=== PATIENT | male | born 1950 ===

== ENCOUNTER 2017-12-25 12:18 | Inpatient (IN) | payer BC, MEDICARE ==
[2018-01-06] MEDS ORDERED: MECLIZINE 25 MG TABLET PO ONE (06:00)
[2018-01-06] MEDS ORDERED: VANCOMYCIN HCL 1,000 MG in DEXTROSE 5 % IN WATER 250 ML IVPB ONE ×2 (06:00)
[2018-01-06] MEDS ORDERED: CEFAZOLIN 2 Gram 2 GM/50 ML BAG IVPB ONE (06:00)
[2018-01-06] MEDS ORDERED: FAMOTIDINE 20MG TABLET PO ONE (06:00)
[2018-01-06] MEDS ORDERED: CELECOXIB 100 MG CAPSULE PO ONE (06:00)
[2018-01-06] MEDS ORDERED: METOCLOPRAMIDE 10 MG TABLET PO ONE (06:00)
[2018-01-06 09:01] LABS: ABO GROUP O; ANTIBODY SCREEN NEGATIVE (NEGATIVE); RH TYPE POSITIVE
[2018-01-06] MEDS ORDERED: HYDROMORPHONE HCL 2 MG/ML VIAL IM PRN (11:05)
[2018-01-06] MEDS ORDERED: NALOXONE 0.4 MG/1 ML VIAL IVP PRN (11:05)
[2018-01-06] MEDS ORDERED: ACETAMINOPHEN 325 MG TAB PO PRN (11:05)
[2018-01-06] MEDS ORDERED: ACETAMINOPHEN W/ CODEINE 300MG/60MG TABLET PO PRN ×2 (11:05)
[2018-01-06] MEDS ORDERED: MAGNESIUM HYDROXIDE 30 ML UDC PO PRN (11:05)
[2018-01-06] MEDS ORDERED: AL HYDROX/MAG HYDROX 30ML UD PO PRN (11:05)
[2018-01-06] MEDS ORDERED: ZOLPIDEM TARTRATE 5 MG TABLET PO PRN (11:05)
[2018-01-06] MEDS ORDERED: KETOROLAC 30 MG/ML VIAL IVP PRN ×2 (11:05)
[2018-01-06] MEDS ORDERED: DIPHENHYDRAMINE HCL 25 MG CAPSULE PO PRN (11:05)
[2018-01-06] MEDS ORDERED: BISACODYL 10 MG SUPP RC PRN (11:05)
[2018-01-06] MEDS ORDERED: HYDROCODONE/APAP 10/325 TABLET PO PRN (11:05)
[2018-01-06] MEDS ORDERED: ONDANSETRON HCL IV 4 MG/2 ML VIAL IVP PRN (11:05)
[2018-01-06] MEDS ORDERED: TRAMADOL HCL 50 MG TABLET PO PRN (11:05)
--- NOTE | 2018-01-06 12:36 | Operative Note ---
DATE: 01/06/2018 PREOPERATIVE DIAGNOSIS: END-STAGE ARTHROSIS OF THE LEFT KNEE. POSTOPERATIVE DIAGNOSIS: END-STAGE ARTHROSIS OF THE LEFT KNEE. PROCEDURE: Cemented left total knee arthroplasty using [employer] II components with a size 6 Oxinium femur, a size 6 stemmed tibial base plate, a 9 mm lipped Highly Crosslinked tibial insert and a 35 mm all-plastic patella. STAFF SURGEON: LISSET DE LA VEGA M.D. ANESTHESIA: GENERAL. PREPARATION: CHLORAPREP. INDIVIDUAL CONSIDERATIONS: NONE. PROCEDURE: The patient was taken to the Operating Room and placed supine on the operating table. He had a successful induction of a general anesthetic. His left lower extremity was prepped and draped in the usual fashion. The patient had a midline approach to the knee. Limb was elevated. The tourniquet was inflated to 250 mmHg. Sharp dissection was carried down through the skin and subcutaneous tissues. Small veins were coagulated with a Bovie. A medial arthrotomy was performed. The patella was everted and the knee was flexed. He had exposed bone primarily in the medial compartment and some change in the patellofemoral compartment. Fat pad was resected, ACL was sacrificed, provisional anterior meniscectomies were performed, and the capsule was released from the medial proximal tibia. The initial femoral ship pilot dispatcher hole was then made freehand. The intramedullary femoral cutting jig was placed. It was cut in 7 degrees of valgus and set for a 10 mm resection and secured with pins. After making the cut, the skin guide was placed in the anterior and posterior ship pilot dispatcher holes. It was found that a size 6 would be appropriate. The anterior and posterior cuts followed by chamfer cuts were made, osteophytes removed, and a size 6 trial was placed and found to fit well. The tibia was brought forward and the remainder of the meniscal remnants were removed with a Bovie. The extra-articular tibial cutting jig was placed and it was cut in neutral with a 3 degree AP slope. Care was taken to adjust for rotation and flexion using the extra-articular alignment guide and bony landmarks. It was set for a 9 mm resection, keyed off the high lateral side, and secured with pins. When cutting the tibia, care was taken to preserve the PCL insertion on the tibia. Large medial osteophytes were removed and I was still able to fit a size 6 baseplate. It was adjusted for rotation and secured with pins. With a 9 mm trial and femoral trial, there was excellent motion and stability. Ligamentous balance, rotation, and alignment were thought to be normal. The femoral ship pilot dispatcher holes were impacted and a triflange tibial stamp was impacted and these trial components were removed. The patient had a thick patella, roughly 9 mm of bone was removed freehand with an oscillating saw. I could easily fit a 35 and the three ship pilot dispatcher holes were drilled. The tourniquet was let down briefly to get bleeders posteriorly then placed back up again. The knee was then thoroughly irrigated out with pulsatile Betadine and saline to remove any visual or palpable debris. Bony surfaces were then dried. A size 6 stem tibial baseplate was cemented into place, followed by impaction of the 9 mm lipped Highly Crosslinked tibial insert, followed by cementing in the size 6 Oxinium femur, followed by cementing in a 35 mm patella. Implant surfaces were compressed, excess cement was removed, and after the cement had set, there was excellent motion and stability. Ligamentous balance, rotation alignment, and patellofemoral tracking were normal. No lateral release was required. Again, thorough irrigation. The tourniquet was then let down and hemostasis was obtained with a Bovie. The subcut and periosteum were infiltrated with 30 mL of 0.50% Marcaine with Epinephrine. The capsule was then closed with a running #2 quill, subcut was closed in layers with running 0 quill in layers, and the skin was closed with amparo. 20 mL of saline was mixed with a gram of Tranexamic Acid and this was injected into the knee. The patient did receive a gram of Tranexamic Acid prior. A sterile Bulkee compressive SARINA-type dressing was applied and he was taken back to Recovery in good condition. There were no complications. JOB NUMBER: [id number] MTDD
--- NOTE | 2018-01-06 14:24 | Rehab Evaluation ---
Patient Information - Patient Information Diagnosis: L knee DJD Ordered Treatment: PT Evaluate and Treat Status: Initial Evaluation Surgery: Yes (TKA) Date of Surgery: 01/06/18 Past Medical/Surgical Hx: PAST MEDICAL/SURGICAL HISTORY Past Surgical History quad bypass 1998 RTCR left bilat CTR right hand sx cervical sx plate cardiac stents 4 stents 2015 cardiac stent 1 stent 2014 bunionectomy right knee scope PMH - Respiratory Hx Respiratory Disorders Yes Hx Pneumonia Yes Hx Sleep Apnea Yes Hx of CPAP Yes PMH - Cardiovascular Hx Cardiovascular Disorders Yes Hx Abnormal EKG Yes Hx Edema Yes Hx Heart Attack Yes: 1998 before quad bypass Hx Hypertension Yes: on meds good control Hx Coronary Artery Disease Yes Hx Coronary Artery Bypass Yes: quad 1998 Graft Hx Coronary Stent Yes: 2014 and 2015 Exercise Tolerance Fair PMH - Neuro Hx Neurological Disorders Yes Hx Dizziness Yes: after sitting when he gets up PMH - GI Hx Gastrointestinal Disorders No PMH - Hx Genitourinary Disorders No PMH - Endocrine Hx Endocrine Disorders No PMH - Musculoskeletal Hx Musculoskeletal Disorders Yes Hx Arthritis Yes: RA Hx Gout Yes: on meds PMH - Psych Hx Psychiatric Problems No PMH - Hematology/Oncology Hx Hematology/Oncology Yes Disorders Hx Bruising Yes: on Plavix Premorbid Status: Detail (Prior to surgery, the patient was independent with all mobility.) Social History: Detail (The patient lives with spouse in a 2 story house with 5 steps at the enterance with one railing. The patient reports he will initially be staying on the first floor. The bathroom is equipped with a walk in shower with a hand held shower and an elevated toilet seat. The patient has a walker with wheels and a stand cane.) Precautions: [place], Fall, Other (WBAT on the L LE.) - Time With Patient Total Time Spent With Patient (Min): 30 Treatment Procedures: Detail (Initial Evaluation.) Subjective Information - Subjective Information Per Patient (The patient had minimal complaints of L knee pain that he did not rate using the 0 to 10 pain scale.) Objective Data - Mental Status Patient Orientation: Oriented x3 - Visual Perception Appears within normal limits for therapeutic activities - ROM Not within normal limits (The patient's AROM of L knee was not tested secondary to s/p surgery. All other LE AROM is WNL.) - Strength/Tone Not within normal limits (The patient's L LE strength was not tested secondary to s/p surgery, however strength is functional, the patient is able to complete a SLR. The patient's R LE strength is generally 4+ to 5/5.) - Bed Mobility Independent (The patient was independent with supine to sit and scooting up in bed.) - Transfers Independent (The patient was independent with sit to and from stand transfer and toilet transfer.) - Balance Balance Sitting: Good Balance Standing: Good - Sensation Intact - Gait Detail (The patient ambulated with wheeled walker a distance of 70 feet x 1 WBAT on the L LE with supervision for safety only and assist to handle IV.) Therapy Assessment - Therapy Assessment Detail (The patient was independent with bed mobility and transfers, with supervision for safety only for ambulation. Anticipate the patient will progress well with mobility.) Problem List - Problem List Physical Therapy Problem List: Detail (1) Decreased L knee AROM and strength as to be expected following surgery. 2) Non ambulatory on stairs.) Goals - Goals Physical Therapy Goals: 1) The patient will be independent with TKA HEP. 2) The patient will ambulate on stairs using correct technique with supervision for safety only. Prognosis - Prognosis Good Plan - Plan Physical Therapy Plan: PT 1-2 times for gait training and instruction in HEP.
[2018-01-06] MEDS ORDERED: ROPIVACAINE HCL (NAROPIN) /PF 5MG/ML 20ML VIAL IV ONE (14:27)
[2018-01-06] MEDS ORDERED: DEXAMETHASONE 4 MG/ML 1ML VIAL IVP ONE (14:27)
[2018-01-06] MEDS ORDERED: TRANEXAMIC ACID 1,000 MG/10 ML ML IV ONE ×2 (14:30→15:49)
[2018-01-06] MEDS ORDERED: 0.9 % SODIUM CHLORIDE 10 ML VIAL IVP ONE (14:30)
[2018-01-06] MEDS: PATIENT OWN MED: ASPIRIN 81 MG PO SCH (15:41)
[2018-01-06] MEDS: PATIENT OWN MED: GABAPENTIN 300 MG PO SCH ×2 (15:43→21:40)
[2018-01-06] MEDS: PATIENT OWN MED: ATENOLOL 100 MG PO SCH (15:44)
[2018-01-06] MEDS: PATIENT OWN MED: ALLOPURINOL 300 MG PO SCH (15:44)
[2018-01-06] MEDS: PATIENT OWN MED: ATORVASTATIN 80 MG PO SCH (15:45)
[2018-01-06] MEDS: PATIENT OWN MED: CLOPIDOGREL 75 MG PO SCH (15:46)
[2018-01-06] MEDS: ISOSORBIDE MONONITRATE 60 MG PO SCH (15:47)
[2018-01-06] MEDS: PATIENT OWN MED: FUROSEMIDE 40 MG PO SCH (15:47)
[2018-01-06] MEDS: PATIENT OWN MED: LISINOPRIL 20 MG PO SCH (15:48)
[2018-01-06] MEDS: PATIENT OWN MED: POTASSIUM 20 MEQ PO SCH (15:48)
[2018-01-06] MEDS ORDERED: BUPIVACAINE 0.5% W/EPI MPF 30 ML VIAL IVP ONE (15:49)
[2018-01-06] MEDS ORDERED: MIDAZOLAM HCL 2MG/2ML VIAL IV ONE (16:17)
[2018-01-06] MEDS ORDERED: KETOROLAC 30 MG/ML VIAL IVP ONE (16:17)
[2018-01-06] MEDS ORDERED: *PACU ONLY* KETAMINE HCL 10 MG/ML (20ML) VIAL IV ONE (16:17)
[2018-01-06] MEDS ORDERED: ONDANSETRON HCL IV 4 MG/2 ML VIAL IVP ONE (16:17)
[2018-01-06] MEDS ORDERED: LIDOCAINE 2% MDV (20MG/ML) 20ML VIAL IV ONE (16:17)
[2018-01-06] MEDS ORDERED: HYDROMORPHONE HCL 2 MG/ML VIAL IV ONE (16:17)
[2018-01-06] MEDS ORDERED: PROPOFOL 10 MG/ML VIAL IV ONE (16:17)
[2018-01-06] MEDS: HYDROCODONE/APAP 10/325 TABLET PO PRN ×2 (16:55→21:45)
[2018-01-06] MEDS: CEFAZOLIN 2 Gram 2 GM/50 ML BAG IVPB SCH (16:55)
[2018-01-06] MEDS: POTASSIUM CHLORIDE/D5-0.9%NACL 20 MEQ/1,000 ML BAG IV SCH ×2 (19:17→21:35)
[2018-01-06] MEDS: DOCUSATE SODIUM 100 MG CAPSULE PO SCH (21:40)
[2018-01-07] MEDS: CEFAZOLIN 2 Gram 2 GM/50 ML BAG IVPB SCH ×2 (01:24→08:19)
[2018-01-07] MEDS: HYDROCODONE/APAP 10/325 TABLET PO PRN ×4 (05:29→17:45)
[2018-01-07] MEDS: POTASSIUM CHLORIDE/D5-0.9%NACL 20 MEQ/1,000 ML BAG IV SCH ×2 (05:35→13:45)
[2018-01-07 06:34] LABS: HEMATOCRIT 39.6 % (42.0-52.0)
[2018-01-07] MEDS: PATIENT OWN MED: GABAPENTIN 300 MG PO SCH ×2 (06:41→13:45)
[2018-01-07 06:45] LABS: BLOOD UREA NITROGEN 14 mg/dL (8-23); CREATININE 0.9 mg/dL (0.7-1.2); EST GLOMERULAR FILTRATION RATE > 60 mL/min; GLUCOSE,RANDOM 129 mg/dL (74-109)
[2018-01-07] MEDS: DOCUSATE SODIUM 100 MG CAPSULE PO SCH (09:26)
--- NOTE | 2018-01-07 09:34 | Physical Therapy Tx Note ---
Physical Therapy Tx Note - Treatment Note Tolerated: Good Total Time Spent With Patient: 30 Physical Therapy Tx Note: Detail (The patient was in bed when PT arrived and stated his pain was minimal. The patient completed TKA HEP with minimal verbal cues to remember all the exercises including: heel slides, SLR, gluteal sets, quad sets, hamstring sets, and ankle pumps. The patient ambulated independently with wheeled walker WBAT on the LE a distance of 80 feet x 1. The patient ambulated on 3 steps using proper technique with use of one railing and folded walker with supervision for safety only. The patient has met all inpatient PT goals.) Physical Therapy Problem List: Detail (1) Decreased L knee AROM and strength as to be expected following surgery. 2) Non ambulatory on stairs.) Physical Therapy Goals: GOALS MET: 1) The patient will be independent with TKA HEP. 2) The patient will ambulate on stairs using correct technique with supervision for safety only. Physical Therapy Plan: The patient has met all inpatient PT goals and is discharged from inpt. PT. The patient is to receive home PT services.
[2018-01-07] MEDS ORDERED: RIVAROXABAN 10 MG TABLET PO SCH (10:00)
[2018-01-07] MEDS ORDERED: FERROUS SULFATE 325 MG TAB PO SCH (10:00)
--- NOTE | 2018-01-07 10:51 | Rehab Evaluation ---
Patient Information - Patient Information Diagnosis: L knee DJD Ordered Treatment: OT Evaluate and Treat Status: Initial Evaluation Surgery: Yes (left TKA) Date of Surgery: 01/06/18 Past Medical/Surgical Hx: PAST MEDICAL/SURGICAL HISTORY Past Surgical History quad bypass 1998 RTCR left bilat CTR right hand sx cervical sx plate cardiac stents 4 stents 2015 cardiac stent 1 stent 2014 bunionectomy right knee scope PMH - Respiratory Hx Respiratory Disorders Yes Hx Pneumonia Yes Hx Sleep Apnea Yes Hx of CPAP Yes PMH - Cardiovascular Hx Cardiovascular Disorders Yes Hx Abnormal EKG Yes Hx Edema Yes Hx Heart Attack Yes: 1998 before quad bypass Hx Hypertension Yes: on meds good control Hx Coronary Artery Disease Yes Hx Coronary Artery Bypass Yes: quad 1998 Graft Hx Coronary Stent Yes: 2014 and 2015 Exercise Tolerance Fair PMH - Neuro Hx Neurological Disorders Yes Hx Dizziness Yes: after sitting when he gets up PMH - GI Hx Gastrointestinal Disorders No PMH - Hx Genitourinary Disorders No PMH - Endocrine Hx Endocrine Disorders No PMH - Musculoskeletal Hx Musculoskeletal Disorders Yes Hx Arthritis Yes: RA Hx Gout Yes: on meds PMH - Psych Hx Psychiatric Problems No PMH - Hematology/Oncology Hx Hematology/Oncology Yes Disorders Hx Bruising Yes: on Plavix Premorbid Status: Detail (Pt lives with spouse in a 2 story house with basement , he stays on the main level. He has 4 steps and 1 railing at the entrance. He has a walk in shower, no seat or grab bar and an elevated toilet, no grab bar. He has a walker, cane and long shoe horn. Prior to surgery, the patient was independent with all mobility, meal prep and washing dishes. His was responsible for home mgmt and laundry.) Social History: Detail (Supportive .) Precautions: [place], Fall, Other (WBAT on the L LE.) - Time With Patient Total Time Spent With Patient (Min): 30 Treatment Procedures: Detail (OT eval low complexity) Subjective Information - Subjective Information Per Patient, Other (Per ) Objective Data - Pain Pain Present: Yes (11/18) - Mental Status Patient Orientation: Oriented x3 - Visual Perception Appears within normal limits for therapeutic activities - ROM Within normal limits (True UE AROM WNL) - Strength/Tone Within normal limits (True UE strength WNL) - Coordination Appears within normal limits for therapeutic activities - Bed Mobility Independent (Ind with supine to sit) - Transfers Independent (Ind with sit to stand from EOB) - Balance Balance Sitting: Good Balance Standing: Good - Sensation Intact - Gait Detail (Pt ambulated in room with 2 wheeled walker Indly.) - ADL's/IADL's Detail (Pt educated and demonstrated learning of LE dressing using modified dressing technique and long shoe horn. Reviewed shower safety and kitchen adaptations, pt verbalized understanding.) Therapy Assessment - Therapy Assessment Detail (Pt safe and Ind with LE dressing and functional mobility needed for ADLs.) Problem List - Problem List Physical Therapy Problem List: Detail (1) Decreased L knee AROM and strength as to be expected following surgery. 2) Non ambulatory on stairs.) Occupational Therapy Problem List: Detail (No current OT problems identified.) Goals - Goals Physical Therapy Goals: GOALS MET: 1) The patient will be independent with TKA HEP. 2) The patient will ambulate on stairs using correct technique with supervision for safety only. Occupational Therapy Goals: No current OT goals identified. Prognosis - Prognosis Good Plan - Plan Physical Therapy Plan: The patient has met all inpatient PT goals and is discharged from inpt. PT. The patient is to receive home PT services. Occupational Therapy Plan: No further IP OT recommended. Thank you for this referral.
[2018-01-07] MEDS: PATIENT OWN MED: POTASSIUM 20 MEQ PO SCH (13:45)
[2018-01-07] MEDS: PATIENT OWN MED: ALLOPURINOL 300 MG PO SCH (13:47)
[2018-01-07] MEDS: PATIENT OWN MED: ASPIRIN 81 MG PO SCH (13:47)
[2018-01-07] MEDS: PATIENT OWN MED: ATENOLOL 100 MG PO SCH (13:48)
[2018-01-07] MEDS: PATIENT OWN MED: ATORVASTATIN 80 MG PO SCH (13:49)
[2018-01-07] MEDS: PATIENT OWN MED: CLOPIDOGREL 75 MG PO SCH (13:49)
[2018-01-07] MEDS: ISOSORBIDE MONONITRATE 60 MG PO SCH (13:50)
[2018-01-07] MEDS: PATIENT OWN MED: FUROSEMIDE 40 MG PO SCH (13:50)
[2018-01-07] MEDS: PATIENT OWN MED: LISINOPRIL 20 MG PO SCH (13:52)
--- NOTE | 2018-01-07 19:47 | Discharge Summary ---
DATE OF ADMISSION: 01/06/2018 DATE OF DISCHARGE: 01/07/2018 DATE OF SURGERY: 01/06/2018 HISTORY: Mr. Grant is a delightful 67-year-old male who presents with end-stage arthrosis of his left knee. He was admitted after left total knee arthroplasty. Postoperatively he did well. His hospital course was unremarkable. Discharge hemoglobin was 13. He did not require transfusion. DISCHARGE INSTRUCTIONS: The plan is to discharge him to home in the care of his family. Home PT and Visiting Nurse has been arranged. He will be given [place] for pain and Xarelto followed by Aspirin for DVT prophylaxis. His sutures will be removed by the Visiting Nurse in two weeks. He will follow-up in my office in four weeks. His discharge condition was good. FINAL DIAGNOSIS/PRIMARY DIAGNOSIS: END-STAGE ARTHROSIS OF THE LEFT KNEE. OPERATIONS AND PROCEDURES: CEMENTED LEFT TOTAL KNEE ARTHROPLASTY. JOB NUMBER: [id number] MTDD
== END 2018-01-07 17:55 | disposition home health service (06) | DRG 470 ==
LOC: MEDSURG 01-06 07:00
PROVIDERS: ADMIT Orthopaedic Surgery; ATTEND Orthopaedic Surgery
PROC: 0SRD069 Replacement of Left Knee Joint with Oxidized Zirconium on Polyethylene Synthetic Substitute, Cemented, Open Approach (ICD-10-PCS; principal; 2018-01-06 09:00)
DX: M17.12 Unilateral primary osteoarthritis, left knee (principal); I10 Essential (primary) hypertension; E78.00 Pure hypercholesterolemia, unspecified; I25.2 Old myocardial infarction; M06.9 Rheumatoid arthritis, unspecified; M10.9 Gout, unspecified; R60.9 Edema, unspecified
CPT/HCPCS: 80048; 85014; 85018; 86850; 86900; 86901; 97110; 97530; J1885; J2405; J3480; J7060